=== PATIENT | female | born 1990 | race Caucasian/White ===

== ENCOUNTER 2024-11-17 07:55 | Day surgery (SDC) | payer MEDICAID, SELFPAY ==
[2024-11-13 14:29] VITALS: BMI 28.1
[2024-11-13 15:58] LABS: Basophils % (Auto) 1 % (0-2.5); Eosinophils # (Auto) 0.2 Thou/mm3 (0.0-0.5); Eosinophils % (Auto) 4 % (0-10); Hematocrit 40.6 % (36.0-46.0); Hemoglobin 13.7 g/dL (12.0-16.0); Immature Granulocytes % (Auto) 0 % (0-0); Immature Granulocytes Auto 0.01 Thou/mm3 (0.00-0.00); Lymphocytes # (Auto) 1.3 Thou/mm3 (1.0-4.8); Lymphocytes % (Auto) 22 % (10-50); Mean Corpuscular HGB Conc 33.7 g/dl (31.0-37.0); Mean Corpuscular Hemoglobin 30.9 pg (25.0-35.0); Mean Corpuscular Volume 92 fL (80-100); Monocytes # (Auto) 0.4 Thou/mm3 (0.0-0.8); Monocytes % (Auto) 6 % (0-12); Neutrophils # (Auto) 3.9 Thou/mm3 (1.8-7.7); Neutrophils % (Auto) 67 % (37-80); Nucleated Red Blood Cell % 0 /100 WBC (0); Platelet Count 209 Thou/mm3 (140-440); RDW Standard Deviation 41.2 fL (36.4-46.3); Red Blood Count 4.43 Miln/mm3 (4.00-5.20); White Blood Count 5.8 Thou/mm3 (3.6-11.0)
[2024-11-13 16:05] LABS: Partial Thromboplastin Time 28.2 Seconds (22.0-36.0); Prothrombin Time 11.2 Seconds (9.0-12.2)
--- NOTE | 2024-11-13 16:07 | SUR.PREOP ---
Pt notified to come in at 0800 on Saturday.
[2024-11-13 16:15] LABS: Alanine Aminotransferase 10 U/L (10-49); Albumin, Serum 4.3 gm/dL (3.5-5.0); Albumin/Globulin Ratio 1.4 (1.2-2.2); Alkaline Phosphatase 86 U/L (46-116); Anion Gap 9 (7-16); Aspartate Amino Transferase 19 U/L (0-34); BUN/Creatinine Ratio 13 Ratio (12-20); Bilirubin,Total 0.8 mg/dL (0.3-1.2); Blood Urea Nitrogen 9 mg/dL (9-23); Calcium 8.6 mg/dL (8.3-10.6); Calcium (Corrected) 8.6 mg/dL (8.5-10.1); Carbon Dioxide 24.4 mMol/L (20.0-31.0); Chloride 109 mMol/L (98-107); Creatinine (Component) 0.7 mg/dL (0.6-1.3); Estimated Creatinine Clearance 124.5 mL/min (>60); Glucose 93 mg/dL (74-106); Osmolality,Calculated 281 (275-295); Potassium 4.1 mMol/L (3.4-5.1); Sodium 142 mMol/L (136-145); Total Protein 7.3 gm/dL (5.7-8.2); eGFR > 60 See Note
[2024-11-13 17:50] LABS: HCG Qualitative,Urine Negative
[2024-11-17] VITALS (8 sets, daily range): BP systolic 94–110; BP diastolic 61–68; PULSE 48–65; RESP 12–20; TEMP 36.3–36.6; O2SAT 96–99; BMI 28.0
--- NOTE | 2024-11-17 11:11 | PD.SUROPNT ---
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 Then her right breast was washed with ChloraPrep solution and draped in a sterile manner. The mass was located at 3 o'clock position and I made a transverse incision at the edge of the breast on the right side. Subcutaneous tissue was dissected out on the lump which was well-circumscribed was excised. I used Allis clamp to retract the lump and divided from the surrounding tissues. Bleeding points were then coagulated with cautery and a layer of subcutaneous tissue was approximated with 3-0 chromic. Then I injected half percent Marcaine plain and then 6 skin was closed with 4-0 Monocryl. Dressing was applied with Adaptic and 4 x 4 gauze and a breast binder was given. Anesthesia other (General LMA) Pathology / specimen Other (Right breast mass) Estimated Blood Loss 30 Surgeon Molly Coffey MD Surgical Staff Operation Date: 11/17/24 10:00 Case Staff Anesthesiologist: Mina Rubin RN First Assistant: Parvin Astudillo
--- NOTE | 2024-11-17 11:22 | SUR.PHASEI ---
1122: Pt. wakes to name then drifts back to sleep, vitals stable, breathing unlabored, no signs of distress, dressing to right breast CDI, no active bleed noted, breast binder in place, report received from MD Rubin and Elizabeth BASHIR.
--- NOTE | 2024-11-17 12:22 | SUR.PHASEII ---
1222: Pt. AAOx4, vitals stable, breathing unlabored, no complaint of pain or nausea, dressing to right breast CDI, breast binder in place, no active bleed noted, pt. tolerated sips of water well, pt. ambulated to wheelchair with steady gait and no assist, no complications. Gave discharge instructions to the pt. and her ride, both verbalized understanding and had no further questions. Pt. left with all personal belongings.
== END 2024-11-17 12:22 | disposition home or self-care (01) ==
PROVIDERS: Anesthesiology; Referring Provider Surgery; Visit Provider Surgery
PROC: (CPT 19301; principal; 2024-11-17 09:45)
DX: D24.1 Benign neoplasm of right breast (principal)
CPT/HCPCS: 19120; 36415; 80053; 81025; 85025; 85610; 85730; A4217; A4649; J1100; J1885; J2250; J2405; J2704; J3010; J3490